=== PATIENT | female | born 2000 | race Caucasian/White ===

== ENCOUNTER 2024-11-13 18:20 | Emergency (ER) | payer OTHER, SELFPAY ==
--- NOTE | 2024-11-13 20:44 | RAD REPORT ---
EXAMINATION: XR RIGHT WRIST CLINICAL INDICATION: PAIN RIGHT TECHNIQUE: Multiple projections of the right wrist were obtained. COMPARISON: No prior exam. FINDINGS: No bone or joint abnormality seen.
--- NOTE | 2024-11-13 20:45 | RAD REPORT ---
EXAMINATION: XR RIGHT ELBOW CLINICAL INDICATION: Female, 24 years old. PAIN RIGHT TECHNIQUE: Multiple views of the right elbow were obtained. COMPARISON: No prior exam. FINDINGS: No acute fracture or dislocation of the elbow. Ulnar fracture partially visualized.
--- NOTE | 2024-11-13 20:45 | RAD REPORT ---
EXAMINATION: XR RIGHT FOREARM CLINICAL INDICATION: . PAIN TECHNIQUE:Two view radiograph of the right forearm were obtained. COMPARISON: No prior exam. FINDINGS: Mildly displaced fracture of the distal shaft of the ulna. No dislocation.
--- NOTE | 2024-11-13 20:46 | RAD REPORT ---
EXAMINATION: XR RIGHT FOOT CLINICAL INDICATION: Female, 24 years old. PAIN TECHNIQUE: Multiple views of the right foot were obtained. COMPARISON: No prior exam. FINDINGS: 2 small screws are seen in the shaft of the fifth metatarsal. Subtle fracture is present i nvolving the base of the proximal phalanx of the fifth toe.
[2024-11-13] MEDS ORDERED: ACETAMINOPHEN 500 MG TAB ONE (20:48)
--- NOTE | 2024-11-13 21:28 | EDPHYS ---
Physician Documentation [facility] Name: Yahaira Lott Age: 24 yrs Sex: Female : 2000 Arrival Date: 11/13/2024 Time: 18:20 Bed 9 Private MD: ED Physician Pierre Marroquin HPI: 11/13 19:37 This 24 yrs old Female presents to ER via Ambulatory with complaints of Arm Injury - sb4 right. 19:37 Patient states she fell a few days ago injuring her right foot and right forearm. sb4 States that she fell again today onto her right arm and is complaining a lot of pain in her wrist and elbow. Is also stating that her foot is still hurting her and has been limping. 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 - Infectious Disease History:: Denies. - Social history:: Smoking status: Patient reports the use of cigarette tobacco products, smokes one-half pack cigarettes per day. ROS: 19:37 Constitutional: Negative for fever, chills, and weight loss, sb4 19:37 MS/extremity: Positive for injury or acute deformity, ecchymosis, pain, swelling, tenderness, of the palmar aspect of right forearm, 19:37 All other systems are negative, Exam: 22:29 Head/Face: Normocephalic, atraumatic. Eyes: Extra-ocular motions intact. Periorbital sb4 areas with no swelling, redness, or edema. ENT: Mucous membranes moist. Respiratory: No increased work of breathing, no retractions or nasal flaring. 22:29 Constitutional: The patient appears in no acute distress, alert, awake, smells of alcohol, ETOH, 22:29 Musculoskeletal/extremity: pain with palpation palmar aspect of right forearm. wrist, elbow, hand, shoulder with normal ROM. radial pulses inact. . 22:29 Skin: Appearance: ecchymosis, noted on the, palmar aspect of right forearm, Vital Signs: 19:27 BP 133 / 99; Pulse 112; Resp 18; Temp 97.7; Pulse Ox 99% ; Weight 72.57 kg; Height 5 cp4 ft. 5 in. ; Pain 6/10; 19:27 Body Mass Index 26.63 (72.57 kg, 165.1 cm) cp4 19:27 Pain Scale: Adult cp4 MDM: 18:31 Medical Screening Exam initiated sb4 22:30 Data reviewed: vital signs, nurses notes, radiologic studies, and as a result, I will sb4 discharge patient. Counseling: I had a detailed discussion with the patient and/or guardian regarding the historical points, exam findings, and any diagnostic results supporting the discharge/admit diagnosis, radiology results, the need for outpatient follow up, for definitive care, to return to the emergency department if symptoms worsen or persist or if there are any questions or concerns that arise at home. 11/13 19:30 Order name: Forearm Right XRAY; Complete Time: 20:50 sb4 11/13 19:35 Order name: Wrist Right 3 View XRAY; Complete Time: 20:50 sb4 11/13 19:35 Order name: Foot Right 3 View XRAY; Complete Time: 20:50 sb4 11/13 20:21 Order name: Elbow Right 2 View; Complete Time: 20:50 EDMS 11/13 19:35 Order name: Sling; Complete Time: 20:17 sb4 11/13 21:06 Order name: Posterior Elbow Splint; Complete Time: 22:18 sb4 Administered Medications: 21:06 Drug: Acetaminophen PO 1000 mg PO once Route: PO; jb4 22:26 Follow up: Response: No adverse reaction; Marked relief of symptoms jb4 Disposition Summary: 11/13/24 21:28 Discharge Ordered Notes: Location: Home sb4 Problem: new sb4 Symptoms: have improved sb4 Condition: Stable sb4 Diagnosis - Nondisplaced transverse fracture of shaft of right ulna, initial encounter for sb4 closed fracture - Nondisplaced fracture of base of proximal phalanx of fifth toe, right sb4 Followup: sb4 - With: Gino Vance MD - When: 1 week - Reason: Recheck today's complaints, Re-evaluation by your physician Discharge Instructions: - Discharge Summary Sheet sb4 - Toe Fracture sb4 - Ulnar Fracture sb4 Forms: - Patient Portal Instructions sb4 - Leadership Thank You Letter sb4 Prescriptions: - Diclofenac Sodium 75 mg Oral Tablet Sustained Release - take 1 tablet ORAL route 2 times per day; 30 tablet; Refills: 0, Product sb4 Selection Permitted Signatures: Dispatcher [employer] EDMS Alvarez Atkins, RN RN jb4 Melissa Cary PA-C PAGuadalupe flores4 Karo Scott cp4 Corrections: (The following items were deleted from the chart) 20:20 19:36 Elbow Right 3 View+RAD.RAD.[email or web address] ordered. EDMS EDMS
--- NOTE | 2024-11-13 21:28 | ER ---
Nurse's Notes [facility] Name: Yahaira Lott Age: 24 yrs Sex: Female : 2000 Arrival Date: 11/13/2024 Time: 18:20 Bed 9 Private MD: Diagnosis: Nondisplaced transverse fracture of shaft of right ulna, initial encounter for closed fracture;Nondisplaced fracture of base of proximal phalanx of fifth toe, right Presentation: 11/13 19:27 Chief complaint: Patient states: fall causing injury to the right forearm. Bruising cp4 noted. Coronavirus screen: Client denies travel out of the [place] in the last 14 days. At this time, the client does not indicate any symptoms associated with coronavirus-19. Ebola Screen: Patient negative for fever greater than or equal to 101.5 degrees Fahrenheit, and additional compatible Ebola Virus Disease symptoms Patient denies exposure to infectious person. Patient denies travel to an Ebola-affected area in the 21 days before illness onset. No symptoms or risks identified at this time. Initial Sepsis Screen: Does the patient meet any 2 criteria? HR > 90 bpm. No. Patient's initial sepsis screen is negative. Does the patient have a suspected source of infection? No. Patient's initial sepsis screen is negative. Risk Assessment: Do you want to hurt yourself or someone else? Patient reports no desire to harm self or others. Onset of symptoms was November 13, 2024 at 17:00. 19:27 Method Of Arrival: Ambulatory cp4 19:27 Acuity: YUNG 4 cp4 Triage Assessment: 19:30 General: Appears in no apparent distress. uncomfortable, Behavior is calm, cooperative, cp4 appropriate for age. Pain: Complains of pain in right arm. Musculoskeletal: Reports pain in right arm. Injury Description: contusion. 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 - Infectious Disease History:: Denies. - Social history:: Smoking status: Patient reports the use of cigarette tobacco products, smokes one-half pack cigarettes per day. Screenin:25 [facility] ED Fall Risk Assessment (Adult) History of falling in the last 3 months, jb4 including since admission No falls in past 3 months (0 pts) Confusion or Disorientation No (0 pts) Intoxicated or Sedated No (0 pts) Impaired Gait No (0 pts) Mobility Assist Device Used No (0 pt) Altered Elimination No (0 pt) Score/Fall Risk Level 0 - 2 = Low Risk Oriented to surroundings, Maintained a safe environment. Abuse screen: Denies threats or abuse. Nutritional screening: No deficits noted. Tuberculosis screening: No symptoms or risk factors identified. Assessment: 20:23 Reassessment: Patient appears in no apparent distress at this time. Patient and/or jb4 family updated on plan of care and expected duration. Pain level reassessed. Patient is alert, oriented x 3, equal unlabored respirations, skin warm/dry/pink. 21:25 Reassessment: Patient appears in no apparent distress at this time. Patient and/or jb4 family updated on plan of care and expected duration. Pain level reassessed. Patient is alert, oriented x 3, equal unlabored respirations, skin warm/dry/pink. 22:25 Reassessment: Patient appears in no apparent distress at this time. Patient and/or jb4 family updated on plan of care and expected duration. Pain level reassessed. Patient is alert, oriented x 3, equal unlabored respirations, skin warm/dry/pink. Vital Signs: 19:27 BP 133 / 99; Pulse 112; Resp 18; Temp 97.7; Pulse Ox 99% ; Weight 72.57 kg; Height 5 cp4 ft. 5 in. ; Pain 6/10; 19:27 Body Mass Index 26.63 (72.57 kg, 165.1 cm) cp4 19:27 Pain Scale: Adult cp4 ED Course: 18:21 Patient arrived in ED. im 18:23 Melissa Cary PA-C is PHCP. sb4 18:23 Pierre Marroquin MD is Attending Physician. sb4 19:30 Triage completed. cp4 19:30 Arm band placed on right wrist. Patient placed in waiting room. cp4 20:19 Forearm Right XRAY In Process Unspecified. EDMS 20:20 Wrist Right 3 View XRAY In Process Unspecified. EDMS 20:20 Foot Right 3 View XRAY In Process Unspecified. EDMS 20:21 Elbow Right 2 View In Process Unspecified. EDMS 21:26 Gino Vance MD is Referral Physician. sb4 21:51 Orthoglass splint: posterior long arm splint applied to the right arm. oe 22:25 Alvarez Atkins, RN is Primary Nurse. jb4 22:25 Patient has correct armband on for positive identification. Bed in low position. Call jb4 light in reach. Side rails up X 1. Provided Education on: plan of care. 22:25 No provider procedures requiring assistance completed. Patient did not have IV access jb4 during this emergency room visit. Administered Medications: 21:06 Drug: Acetaminophen PO 1000 mg PO once Route: PO; jb4 22:26 Follow up: Response: No adverse reaction; Marked relief of symptoms jb4 Medication: 22:25 VIS not applicable for this client. jb4 Outcome: :28 Discharge ordered by . sb4 22:25 Discharged to home ambulatory, with family, jb4 22:25 Condition: stable 22:25 Discharge instructions given to patient, Instructed on discharge instructions, follow up and referral plans. medication usage, Demonstrated understanding of instructions, follow-up care, medications, Prescriptions given X 1, 22:26 Patient left the ED. jb4 Signatures: Dispatcher [employer] EDMS Alvarez Atkins, RN RN jb4 [place] Sophia PALoganC PA-C sb4 Abbie Peguero Christina cp4
[2024-11-15 11:24] VITALS: BP 133/99; TEMP 97.7; O2SAT 99
== END 2024-11-13 22:26 | disposition home or self-care (01) ==
LOC: ER 18:20
PROC: 2W3CX1Z Immobilization of Right Lower Arm using Splint (ICD-10-PCS; principal; 2024-11-13)
DX: S52.224A Nondisplaced transverse fracture of shaft of right ulna, initial encounter for closed fracture (principal); S92.514A Nondisplaced fracture of proximal phalanx of right lesser toe(s), initial encounter for closed fracture; W18.30XA Fall on same level, unspecified, initial encounter; F17.210 Nicotine dependence, cigarettes, uncomplicated
CPT/HCPCS: 99283